=== PATIENT | female | born 1990 | race Caucasian/White ===

== ENCOUNTER 2019-10-11 16:01 | Emergency (ER) | payer OTHER, SELFPAY ==
--- NOTE | ~2019-10-11 | XR_ITS ---
XR chest 2V DATE: 10/11/2019 16:31 INDICATION: Near syncope. Dizziness. Lightheadedness. TECHNIQUE: PA and lateral views COMPARISON: 10/06/2019 PA chest FINDINGS: Normal heart size. No hilar or mediastinal enlargement. No pulmonary infiltrate or consolid ation, pleural effusion or pulmonary vascular congestion or pneumothorax. IMPRESSION: No active cardiopulmonary disease Reviewed, dictated and finalized at location A.
[2019-10-11 16:09] VITALS: BP 135/74; PULSE 95; PULSE 99; RESP 15; TEMP 36.6; O2SAT 100
--- NOTE | 2019-10-11 16:09 | ED.DIZZY ---
HPI - Dizziness General Chief Complaint: Unspecified Stated Complaint: dizzy/lightheaded Time Seen by Provider: 10/11/19 16:07 Source: patient and RN notes reviewed Mode of arrival: other Limitations: no limitations History of Present Illness HPI Narrative: Pt is a 29 y/o female who presents to the ED with c/o lightheadedness and dizziness that began while at orientation here at [employer]. She notes her sx started at 3:45 PM while she was sitting. Pt notes that she began to feel her pulse and a vibration in her epigastric abomen. Pt notes that she saw her abdomen shaking. She notes that she began to feel cold and was near syncope. Pt also reports that she had a chest x-ray last week for her orientation. Pt notes that she went to stand up and walk around, but she began to feel dizzy and felt like she was going to have a syncopal episode. Pt had a black [place] corn burger with zucchini for lunch today. Pt notes that she drank some tea and has had about 70 ounces of water today. Pt denies taking any medication. Pt also reports nausea and shakiness, but denies diaphoresis, chest pain, abdominal pain, syncope, and vision changes. MD elicited complaint: dizziness and lightheadedness Onset (ago): hour(s) (1) Timing: sudden onset Context: at rest History of similar symptoms: No Associated symptoms: nausea and other (vibration in abdomen) Related Data Allergies Allergy/AdvReac Type Severity Reaction Status Date / Time amoxicillin AdvReac Rash Verified 10/11/19 16:21 Review of Systems Review of Systems: Narrative: CONSTITUTIONAL: Reports shakiness. EYES: Denies vision changes. CARDIOVASCULAR: Reports lightheadedness. Denies diaphoresis and chest pain. GASTROINTESTINAL: Reports vibration in her abdomen and nausea. Denies abdominal pain. NEUROLOGIC: Reports dizziness. Denies syncope. All systems reviewed & are unremarkable except as noted in HPI and below PMFSH Past Medical History Medical History IUD (intrauterine device) in place Surgical History Surgical History (Updated 10/11/19 @ 16:53 by Mimi Carvalho) No history of previous surgery Social History Social History (Updated 10/11/19 @ 16:53 by Mimi Carvalho) Smoking status: Never smoker Gender identity (if verbalized by the patient): Female Exam Narrative: Exam Narrative: GENERAL: Well-appearing, well-nourished, and in no acute distress. HEAD: Normocephalic, atraumatic. EYES: PERRLA and EOMI. ENT: Nares clear, no rhinorrhea or epistaxis. Mucous membranes moist. NECK: Supple. CHEST: Clear to auscultation. No respiratory distress. HEART: Regular rate and rhythm. No murmur heard. Normal peripheral pulses. ABDOMEN: Soft, nontender, nondistended, normal active bowel sounds. EXTREMITIES: Normal range of motion. No edema. No calf tenderness. SKIN: Warm, dry, no rash. NEURO: No focal deficits. Alert and oriented X3.EOMs intact without nystagmus. No facial droop/asymmetry noted bilaterally. Grimace intact. Intact sensation in face. Hearing intact bilaterally. Shoulder shrug intact. Strength 5/5 bilateral upper extremities. Strength 5/5 bilateral lower extremities. Reflexes 2+ patellar. Ambulatory with a narrow based steady gait. 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 Patient was not standing, denies feeling anxious this. She does report feeling a bit clammy, but denied any chest pain, headache, vomiting. Patient with normal neurological exam here. No chest pain or shortness of breath. Vaginal exam unknown etiology of patient's symptoms. Patient did not actually syncopized or lose consciousness. She states she just felt briefly unwell. IV access obtained and labs are drawn. Laboratory results show no evidence of electrolyte abnormality, acute kidney injury. Urinalysis is consistent with a UTI. I do not feel that that would cause near syncope, but I believe the urinalysis should be treated. Patient had a seco
--- NOTE | 2019-10-11 16:14 | ECG_ITS ---
Measurements Intervals [place] Rate: 83 P: 66 NM: 167 QRS: 75 QRSD: 102 T: 53 QT: 375 QTc: 443 Interpretive Statements SINUS RHYTHM WITH MARKED SINUS ARRHYTHMIA BORDERLINE R WAVE PROGRESSION, ANTERIOR LEADS BASELINE ARTIFACT- I, II, III, AVR, AVL, AVF, V1, V4-V6 BORDERLINE ECG Electronically Signed On 10-11-2019 17:09:49 CDT by Rajan Francois D.O.
[2019-10-11 16:24] LABS: Glucose Point of Care 69 (65-105)
[2019-10-11] MEDS: SODIUM CHLORIDE 0.9% IV 1,000 ML 999 ML IV CONT (16:38)
[2019-10-11] MEDS: ONDANSETRON INJ 4 MG/2 ML VIAL IV PUSH (16:38)
[2019-10-11 16:44] LABS: Basophils Absolute Auto 0.1 K/mm3 (0.0-0.1); Basophils Percent Auto 0.8 % (0.2-1.2); Eosinophils Absolute Auto 0.3 K/mm3 (0-0.3); Eosinophils Percent Auto 3.7 % (0-4.4); Hematocrit 47.1 % (37.0-47.0); Hemoglobin 15.6 g/dL (12.0-15.0); Immature Granulocyte Absolute 0.02 K/mm3 (0.00-0.031); Immature Granulocyte Percent A 0.3 % (0-0.5); Lymphocytes Absolute Auto 2.91 K/mm3 (0.9-3.2); Lymphocytes Percent Auto 38.9 % (18.3-44.2); Mean Corpuscular HGB Conc 33.1 g/dl (32-36); Mean Corpuscular Hemoglobin 30.1 pg (26-34); Mean Corpuscular Volume 90.8 fl (80-100); Mean Platelet Volume 10.1 fl (7.4-10.4); Monocytes Absolute Auto 0.6 K/mm3 (0.1-0.6); Monocytes Percent Auto 7.9 % (2.6-8.5); Neutrophils Absolute Auto 3.6 K/mm3 (1.3-6.7); Neutrophils Percent Auto 48.4 % (45.5-73.1); Platelet Count Result 241 k/mm3 (150-375); Red Blood Count 5.19 M/mm3 (4.2-5.4); Red Cell Distribution Width 12.6 % (11.5-14.5); White Blood Count 7.5 K/mm3 (4.5-10.0)
[2019-10-11 16:52] LABS: Alanine Aminotransferase 18 U/L (4-35); Alkaline Phosphatase 67 U/L (38-126); Aspartate Amino Transferase 26 U/L (14-36); Bilirubin,Total 1.3 mg/dL (0.2-1.3); Blood Urea Nitrogen 17 mg/dL (7-17); Calcium 9.4 mg/dL (8.4-10.2); Carbon Dioxide 25 mmol/L (22-30); Chloride 102 mmol/L (98-107); Estimated CRCL calculation 128 ml/min; Estimated Glomerular Filt Rate > 60; Glucose 94 mg/dL (65-105); INR 0.9; Potassium 3.9 mmol/L (3.4-5.0); Prothrombin Time 12.2 Seconds (11.1-14.7); Sodium 139 mmol/L (137-145)
[2019-10-11 16:53] LABS: Partial Thromboplastin Time 25.6 SECONDS (22.3-36.8)
[2019-10-11 16:57] LABS: D Dimer < 0.22 ug/mL (<0.48)
[2019-10-11 16:59] LABS: D Dimer 0.27 ug/mL (<0.48)
[2019-10-11 17:04] LABS: Troponin I < 0.012 ng/mL (0.000-0.034)
[2019-10-11 18:47] LABS: Add Urine Microscopic? YES; Appearance Urine Cloudy (Clear); Bacteria Urine 1+ /hpf; Bilirubin Urine Negative (Negative); Blood Urine 2+ (Negative); Budding Yeast Urine Present /hpf; Color Urine Red (Yellow); Glucose Urine UA Negative (Negative); Ketones Urine Negative (Negative); Leukocyte Esterase Ur 3+ LEU/UL (Negative); Mucus Urine Rare /lpf; Nitrate Urine Negative (Negative); Protein Urine 1+ mg/dL (Negative); Specific Grav Ur 1.008 (1.001-1.035); Squamous Epithelial Cell Urine Many /hpf (Few); Urobilinogen Urine Negative mg/dL (<2.0); WBC Clumps Urine Present /HPF; WBC Urine >75 /hpf
[2019-10-11 18:54] VITALS: BP 109/65; PULSE 71; RESP 18; O2SAT 100
[2019-10-11 19:29] LABS: Troponin I < 0.012 ng/mL (0.000-0.034)
[2019-10-11 20:35] VITALS: BP 111/65; PULSE 78; RESP 16; O2SAT 98
== END 2019-10-11 20:36 | disposition home or self-care (01) ==
PROVIDERS: Emergency Provider Emergency Medicine
DX: R55 Syncope and collapse (principal); N30.01 Acute cystitis with hematuria; Z97.5 Presence of (intrauterine) contraceptive device
CPT/HCPCS: 36415; 71046; 80053; 81001; 81025; 82948; 84484; 85025; 85380; 85610; 85730; 87086; 87088; 93005; 96361; 96374; 99284; J2405; J7030

== ENCOUNTER 2020-09-04 11:08 | Outpatient (NON) | payer OTHER, SELFPAY | END 2020-09-04 11:09 | LOC: CHSLAB 11:10 | PROVIDERS: Visit Provider Nurse Practitioner Family | DX: R10.31 Right lower quadrant pain (principal); R10.32 Left lower quadrant pain; R35.0 Frequency of micturition | CPT/HCPCS: 87491; 87591; 87661 ==

== ENCOUNTER 2021-02-13 13:34 | Outpatient (CLI) | payer OTHER, SELFPAY ==
--- NOTE | ~2021-02-13 | US_ITS ---
EXAMINATION:US venous doppler LE RT INDICATION:Right leg pain TECHNIQUE: Multiple grayscale, color flow and Doppler images of the right lower extremity deep venous systems were obtained and reviewed. COMPARISON:No prior studies for comparison. FINDINGS: The common femoral, superficial femoral and popliteal veins demonstrate normal respiratory variation, augmentation and compressibility. Color flow is also seen within the posterior tibial, pe roneal, greater saphenous and profunda veins. IMPRESSION: 1: No lower extremity deep venous thrombosis. Reviewed, dictated and finalized at location A.
== END 2021-02-13 13:35 | disposition home or self-care (01) ==
LOC: CHSIMG 13:37
PROVIDERS: PCP Family Medicine; Visit Provider Family Medicine
DX: M79.661 Pain in right lower leg (principal)
CPT/HCPCS: 93971

== ENCOUNTER 2021-06-14 13:43 | Outpatient (CLI) | payer OTHER, SELFPAY ==
--- NOTE | ~2021-06-14 | US_ITS ---
EXAMINATION: US pelvic complete w TV EXAM DATE: 06/14/2021 14:19 INDICATION: pelvic pain pelvic pain, right sided . TECHNIQUE: Pelvic transabdominal and transvaginal sonogram was performed. There are multiple graysca le and Doppler images available for interpretation. Comparison is made to prior examination from 2013. FINDINGS: Uterus measures 9.0 x 5.0 x 4.1 cm, with IUD centrally located inside the endometrial cavi ty. Endometrial stripe measures 3-4 mm, within normal limits. There is no free pelvic fluid. Right adnexa: The ovary measures 3.2 x 2.0 x 2.2 cm and is morphologically normal. Ovarian vascular f low confirmed. Left adnexa: The ovary measures 3.2 x 2.1 x 2.9 cm and is morphologically normal. Ovarian vascular fl ow confirmed. IMPRESSION: 1. Unremarkable pelvic ultrasound exam. Reviewed, dictated and finalized at location B. NG INSERTER
== END 2021-06-14 13:44 | disposition home or self-care (01) ==
LOC: ANHIMG 13:47
PROVIDERS: PCP Family Medicine; Visit Provider Obstetrics & Gynecology
DX: R10.2 Pelvic and perineal pain (principal)
CPT/HCPCS: 76830; 76856

== ENCOUNTER 2021-09-23 18:01 | Emergency (ER) | payer OTHER, SELFPAY ==
[2021-09-23] VITALS (10 sets, daily range): BP systolic 103–124; BP diastolic 59–70; PULSE 71–82; RESP 11–21; TEMP 37.3; O2SAT 100
--- NOTE | ~2021-09-23 | XR_ITS ---
EXAMINATION: XR chest 1V portable INDICATION: Shortness of breath, midsternal chest pain TECHNIQUE: Portable AP chest at 1827 hours COMPARISON: 10/11/2019 FINDINGS: The lungs are free of acute opacities. There is no pleural effusion or pneumothorax. The ca rdiomediastinal silhouette is normal. The visualized bones and soft tissues are unremarkable. IMPRESSION: 1. No acute cardiopulmonary abnormality. Reviewed, dictated and finalized at location F. PULLER
--- NOTE | 2021-09-23 18:17 | ECG_ITS ---
Measurements Intervals [address] Rate: 83 P: 62 SC: 157 QRS: 78 QRSD: 98 T: 44 QT: 354 QTc: 418 Interpretive Statements SINUS RHYTHM INCOMPLETE RIGHT BUNDLE BRANCH BLOCK BORDERLINE ST ABNORMALITY- ANTEROLAT/INF LEADS BASELINE WANDER- V5-V6 BORDERLINE ECG Electronically Signed On 09-23-2021 20:18:57 SPINNING OPERATOR by Rajan Francois D.O.
[2021-09-23] MEDS: NALOXONE HCL 0.4 MG/ML VIAL IV PUSH (18:21)
[2021-09-23 18:34] LABS: Basophils Absolute Auto 0.1 K/mm3 (0.0-0.1); Basophils Percent Auto 0.8 % (0.2-1.2); Eosinophils Absolute Auto 0.3 K/mm3 (0-0.3); Hematocrit 41.7 % (37.0-47.0); Hemoglobin 14.6 g/dL (12.0-15.0); Immature Granulocyte Absolute 0.01 K/mm3 (0.00-0.031); Immature Granulocyte Percent A 0.2 % (0-0.5); Lymphocytes Absolute Auto 2.73 K/mm3 (0.9-3.2); Lymphocytes Percent Auto 43.3 % (18.3-44.2); Mean Corpuscular Hemoglobin 30.7 pg (26-34); Mean Corpuscular Volume 87.6 fl (80-100); Mean Platelet Volume 9.8 fl (7.4-10.4); Monocytes Absolute Auto 0.5 K/mm3 (0.1-0.6); Monocytes Percent Auto 7.8 % (2.6-8.5); Neutrophils Absolute Auto 2.8 K/mm3 (1.3-6.7); Neutrophils Percent Auto 43.9 % (45.5-73.1); Platelet Count Result 220 k/mm3 (150-375); Red Blood Count 4.76 M/mm3 (4.2-5.4); Red Cell Distribution Width 12.4 % (11.5-14.5); White Blood Count 6.3 K/mm3 (4.5-10.0)
[2021-09-23 18:44] LABS: Alanine Aminotransferase 19 U/L (4-35); Albumin Level 4.8 g/dL (3.5-5.1); Alkaline Phosphatase 65 U/L (38-126); Anion Gap 8 mmol/L (8-16); Aspartate Amino Transferase 34 U/L (14-36); Bilirubin,Total 0.9 mg/dL (0.2-1.3); Blood Urea Nitrogen 16 mg/dL (7-17); Calcium 9.3 mg/dL (8.4-10.2); Carbon Dioxide 26 mmol/L (22-30); Chloride 104 mmol/L (98-107); Estimated CRCL calculation 109 ml/min; Estimated Glomerular Filt Rate > 60; Glucose 105 mg/dL (65-110); Potassium 3.3 mmol/L (3.4-5.0); Sodium 138 mmol/L (137-145)
[2021-09-23] MEDS: POTASSIUM CHLORIDE 20 MEQ PACKET (FOR LIQUID) 40 MEQ PO (19:06)
--- NOTE | 2021-09-23 19:16 | ED.GENADULT ---
HPI - General Adult General Chief complaint: Environmental Exposure Stated complaint: Accidentlay Exposure Time Seen by Provider: 09/23/21 18:07 Source: patient and RN notes reviewed Limitations: no limitations History of Present Illness HPI narrative: 31-year-old female presenting to the emergency department for evaluation after a suspected sentinel exposure while at work. 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 Shortly after transferring materials patient had onset of lightheadedness tachycardia and chest tightness. Related Data Home Medications Medication Instructions Recorded Confirmed No Home Medications 09/23/21 09/23/21 Allergies Allergy/AdvReac Type Severity Reaction Status Date / Time amoxicillin AdvReac Rash, Hives Verified 09/23/21 18:14 Review of Systems Review of Systems: CONSTITUTIONAL: Lightheadedness. EYES: Denies visual changes, redness, or discharge. ENT: Denies rhinorrhea, congestion, sore throat, or otalgia. CARDIOVASCULAR: Tachycardia with chest tightness RESPIRATORY: Shortness of breath. GASTROINTESTINAL: Denies abdominal pain, nausea, vomiting, or diarrhea. GENITOURINARY: Denies dysuria or hematuria. SKIN: Denies rash or itching. MUSCULOSKELETAL: Denies back pain, joint pain, or myalgia. NEUROLOGIC: Denies headache, numbness, or weakness. [facility] Past Medical History Medical History Vaginal delivery x1 Surgical History Surgical History [place] teeth extracted Family History Family History Grandparent Carcinoma of colon grandfather Diabetes mellitus Hypertension Father Diabetes mellitus Social History Social History Smoking status: Former smoker Alcohol intake: current Drinks per week: 1 Substance use: former Gender identity (if verbalized by the patient): Female Exam Narrative: APPEARANCE: Well appearing, no pain, no distress, well-nourished. HEAD: normocephalic, atraumatic. EYES: PERRLA/EOMI, conjunctivae clear. NECK: Supple. No adenopathy, no masses. RESPIRATORY: Airway patent, respirations nonlabored. Clear to auscultation bilaterally, no rales, rhonchi, wheezing. CARDIOVASCULAR: Regular rate and rhythm without murmurs rubs or gallops. NEURO: Alert. Cranial nerves II through XII intact. SKIN: Warm, dry. Normal Color Course Course Emergency Course: Patient symptoms did resolve after treatment with 0.4 mg of Narcan. After the Narcan patient states she had no chest tightness. Patient's labs are within normal limits other than her potassium. Her potassium was replaced. Chest x-ray showed no acute finding. And patient's EKG showed normal sinus rhythm with a right bundle branch block which was similar to her previous EKG. Reevaluation(s) Reevaluation #1: Patient still feels improved. Patient was comfortable with the plan for discharge to home. All questions and concerns were addressed. Patient was well-appearing at time of discharge from the emergency department. Time: 19:23 Vital Signs Vital signs: Vital Signs Temperature 99.2 F 09/23/21 18:06 Pulse Rate 82 09/23/21 18:06 Respiratory Rate 21 H 09/23/21 18:06 Blood Pressure 124/70 09/23/21 18:06 Pulse Oximetry 100 09/23/21 18:06 Temperature 99.2 F 09/23/21 18:06 Pulse Rate 79 09/23/21 19:30 Respiratory Rate 14 09/23/21 19:30 Blood Pressure 103/62 09/23/21 19:16 Pulse Oximetry 100 09/23/21 19:30 Medical Decision Making Vital Signs Vital Signs: Vital Signs Temperature 99.2 F 09/23/21 18:06 Pulse Rate 82 09/23/21 18:06 Respiratory Rate 21 H 09/23/21 18:06 Blood Pressure 124/70 09/23/21 18:06 Pulse Oximetry 100 09/23/21 18:06
== END 2021-09-23 20:09 | disposition home or self-care (01) ==
PROVIDERS: Emergency Provider Emergency Medicine; PCP Family Medicine
DX: Z77.128 Contact with and (suspected) exposure to other hazards in the physical environment (principal); Z87.891 Personal history of nicotine dependence; I45.10 Unspecified right bundle-branch block; R94.31 Abnormal electrocardiogram [ECG] [EKG]
CPT/HCPCS: 36415; 71045; 80053; 85025; 93005; 96374; 99284; A9270; J2310

== ENCOUNTER 2021-12-24 14:19 | Emergency (ER) | payer OTHER, SELFPAY ==
[2021-12-24 14:21] VITALS: BP 128/57; PULSE 85; RESP 16; TEMP 36.5; O2SAT 100
[2021-12-24] MEDS: DOXYCYCLINE HYCLATE 100 MG TABLET PO (14:46)
--- NOTE | 2021-12-24 14:48 | ED.URI ---
HPI - URI/Sore Throat General Chief Complaint: Upper Respiratory Infection <LI Braga Last Filed: 12/24/21 18:36> Stated Complaint: sinus infection <Liza Moreno PA-C - Last Filed: 12/24/21 18:36> Time Seen by Provider: 12/24/21 14:27 <LI Braga Last Filed: 12/24/21 18:36> History of Present Illness HPI Narrative: 31-year-old female here for evaluation of sore throat for the past 10 days associated with nasal drainage, mild facial pain and hoarse voice. Patient states the pain has not improved since onset, and she is also noted some facial pain that radiates into her upper dental area. She has been attempting [id number] medications without relief. Denies sick contacts. She has had 2 negative COVID test at home. Denies fevers, chills. Reports cough in the morning with productive clear sputum, but no shortness of breath or chest pain. <LI Braga Last Filed: 12/24/21 18:36> Related Data Allergies/Adverse Reactions: Allergies Allergy/AdvReac Type Severity Reaction Status Date / Time amoxicillin AdvReac Rash, Hives Verified 09/23/21 18:14 <LI Braga Last Filed: 12/24/21 18:36> Review of Systems Review of Systems: Gen.: Denies fevers or chills Eyes: Denies eye pain or visual change ENT: Reports congestion, sore throat, facial pain and dental pain Respiratory: Reports cough in the morning. Denies shortness of breath CV: Denies chest pain or palpitations GI: Denies abdominal pain nausea, emesis or diarrhea denies burning, urgency, frequency or hematuria Musculoskeletal: Denies back pain or muscle pain Neuro: Denies numbness, tingling, weakness or focal weakness Skin: Denies rash Except as documented, all other systems reviewed and negative <LI Braga Last Filed: 12/24/21 18:36> [facility] Past Medical History Medical History: Medical History Vaginal delivery x1 <Liza Moreno PA-C - Last Filed: 12/24/21 18:36> Surgical History Surgical History: Surgical History [place] teeth extracted <Liza Moreno PA-C - Last Filed: 12/24/21 18:36> Family History Family History: Family History Grandparent Carcinoma of colon grandfather Diabetes mellitus Hypertension Father Diabetes mellitus <Liza Moreno PA-C - Last Filed: 12/24/21 18:36> Social History Social History: Social History Smoking status: Former smoker Alcohol intake: current Drinks per week: 1 Substance use: former Gender identity (if verbalized by the patient): Female <Liaz Moreno PA-C - Last Filed: 12/24/21 18:36> Exam Narrative: APPEARANCE: No acute distress, nontoxic, resting in bed EYES: EOMI HEENT: Mildly tender to palpation over frontal sinuses, no tenderness over maxillary sinuses. Posterior oropharynx clear. No exudates. No tonsillar swelling, uvular deviation, exudates. Normocephalic, atraumatic, OMM. Normal dentition. Neck: No cervical lymphadenopathy RESPIRATORY: No respiratory distress. Clear to auscultation bilaterally with no rhonchi wheezing or rales. CARDIOVASCULAR: Regular rate and rhythm without murmurs rubs or gallops. ABDOMINAL: Soft, nontender, nondistended, no rebound or guarding MUSCULOSKELETAl: Moves all extremities. No clubbing, cyanosis or edema. NEURO: Awake and alert. Following commands, speech normal, no focal deficits SKIN: Warm, dry. No rashes lesions or abrasions PSYCHIATRIC: Normal affect/mood <Liza Moreno PA-C - Last Filed: 12/24/21 18:36> Course MOTOR POOL CLERK/PA Physician Supervision For this patient encounter, I reviewed the MOTOR POOL CLERK or PA documentati
[2021-12-24 14:54] VITALS: O2SAT 99
== END 2021-12-24 14:58 | disposition home or self-care (01) ==
LOC: ANHED 14:40
PROVIDERS: Emergency Provider Emergency Medicine; PCP Family Medicine
DX: J32.9 Chronic sinusitis, unspecified (principal); Z87.891 Personal history of nicotine dependence
CPT/HCPCS: 96372; 99283; A9270; J1100

== ENCOUNTER 2024-04-26 14:57 | Outpatient (RCR) | payer OTHER, SELFPAY ==
--- NOTE | 2024-04-26 16:06 | PTOPEVAL1 ---
Assessment and note entered by Rashad Blue Evaluation Information Assessment Status Evaluation ICD-10 Condition Codes (PT) M54.16 Onset 03/22/24 Subjective Information Pt. reports that she injured the low back on . 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 She states that she was working that day and has to bend often due to her height in the helicopter. She states that on that particular day she had several heavy lifts with patients in stretchers and on a ventilator. She reports she felt pain that evening after work, and pain began to worsen over the next several days. She describes pain from the sacral region and radiating to the right side. She underwent MRI which revealed L4 and L5 disc herniation. She states that her pain is constant and achy, but can get occasional sharp pain. She states that standing or sitting for long periods of time will increase her pain. She reports that she has been off work since 03/22/24. She states that she has improved significant since the onset, but still has pain. She reports that she returns to her doctor on 05/18/24, and does not have a return to work date at this time. Reported Pain Level Pain Score 4: Self Report Assessment PT Clinical Summary Pt. is a 34 year old female who enters the clinic with lumbar radiculopathy. She presents with impaired postural awareness, impaired trunk mobility, proximal l.e. weakness, pain, impaired flexibility and functional decline. Continued skilled PT is indicated in order to improve these areas to allow for improved comfort with IADL performance and to safely return to work. Plan of Care Interventions Electrical Stimulation,Hot Pack/Cold Pack,Manual Therapy,Mechanical Traction,Neuro Re-education, Patient/Caregiver Educati,Therapeutic Activities, Therapeutic Exercise PT Services Indicated Yes Treatment Frequency and 3x/week x 12 visits Duration These treatments will address the objective and functional deficits as defined above. The patient will be advanced safely and appropriately in order for the patient to progress towards his/her prior level of function. Additional exercises will be introduced and as well as a comprehensive home exercise program upon discharge, if needed, ?to ensure carryover of functional gains achieved in the clinic. This treatment plan has been reviewed and agreement upon by the patient.
--- NOTE | 2024-04-26 16:07 | OPREHPOC ---
Outpatient Therapy Plan of Care This is a Multidisciplinary Plan of Care that may contain components documented by all disciplines (PT, OT, and ST.) PT Problem 1 PT Problem #1 Knowledge Deficit PT Goal 1 Goal / Goal Update Pt. will be independent with a HEP addressing trunk mobility and core strength Target Visit 2 PT Problem 2 PT Problem #2 Impaired Flexibility PT Goal 1 Goal / Goal Update Pt. will present at 10 degrees from full knee extension on right and left with the 90/90 test Pt. will present with negative slump test and SLR test on right indicating decreased nerve irritation Target Visit 12 PT Problem 3 PT Problem #3 Impaired Functional Mobil PT Goal 1 Goal / Goal Update Pt. will report being able to walk for 1-2 hours without pain increase Pt. will demonstrate ability to lift 30# or greater from floor to waist in repetition without pain increase. Target Visit 12
--- NOTE | 2024-05-17 17:08 | PTOPPROG ---
Assessment and note entered by Rashad [facility] Evaluation Information Assessment Status Progress ICD-10 Condition Codes (PT) M54.16 Onset 03/22/24 Subjective Information Pt. reports that sharp pain developed last week and has been consistent since last week. She describes tenderness in the area of the right buttock and describes a point of sharpness around the PSIS on the right. She states that pain intensity varies with certain movements. She states that pain is not intense and is manageable. She reports that she still experiences pain with attempting to lift from the floor. She reports that she does return to the doctor tomorrow to discuss further treatment options. Assessment PT Clinical Summary Pt. has attended a total of 10 treatment sessions focused on modality care for pain, manual techniques to improve tissue mobility and decrease pain and therapeutic exercise focused on core stabilization. Subjective reports of pain continue to fluctuate, however note improvements in strength. she still requires cuing with body mechanics in regards to lifting. Recommend continued skilled PT per POC focused on further improving stability. Encouraged pt. to discuss the option of injection to help reduce pain. Plan of Care Interventions Electrical Stimulation,Hot Pack/Cold Pack,Manual Therapy,Mechanical Traction,Neuro Re-education, Patient/Caregiver Educati,Therapeutic Activities, Therapeutic Exercise PT Services Indicated Yes Treatment Frequency and Continue with 2 remaining sessions on current POC Duration focused on core strength and pain reduction. These treatments will address the objective and functional deficits as defined above. The patient will be advanced safely and appropriately in order for the patient to progress towards his/her prior level of function. Additional exercises will be introduced and as well as a comprehensive home exercise program upon discharge, if needed, ?to ensure carryover of functional gains achieved in the clinic. This treatment plan has been reviewed and agreement upon by the patient.
--- NOTE | 2024-05-21 09:27 | OPREHPOC ---
Outpatient Therapy Plan of Care This is a Multidisciplinary Plan of Care that may contain components documented by all disciplines (PT, OT, and ST.) PT Problem 1 PT Problem #1 Knowledge Deficit PT Goal 1 Goal / Goal Update Pt. will be independent with a HEP addressing trunk mobility and core strength Target Visit 2 Progress Met PT Problem 2 PT Problem #2 Impaired Flexibility PT Goal 1 Goal / Goal Update Pt. will present at 10 degrees from full knee extension on right and left with the 90/90 test. not met Pt. will present with negative slump test and SLR test on right indicating decreased nerve irritation. Not met Target Visit 24 Progress Partially Met PT Problem 3 PT Problem #3 Impaired Functional Mobil PT Goal 1 Goal / Goal Update Pt. will report being able to walk for 1-2 hours without pain increase. Not Met Pt. will demonstrate ability to lift 30# or greater from floor to waist in repetition without pain increase. Not Met Pt. will report feeling ready to return to work duties. Target Visit 24 Progress Not Met PT Problem 4 PT Problem #4 Pain PT Goal 1 Goal / Goal Update 1. patient will report reduction of all pain/ symptoms in the R lower back and R hip/LE. Target Visit 24
--- NOTE | 2024-05-21 09:27 | PTOPREEVAL ---
Assessment and note entered by JT File, PT Evaluation Information Assessment Status Re-evaluation ICD-10 Condition Codes (PT) M54.16 Onset 03/22/24 Subjective Information patient reports she continues to have pain and symptoms in the R lower back and R LE. she reports she just saw the MD who wants her to continue skilled PT. she reports since her initial evaluation she is much improved, but reports she continues to have R hip and LE symptoms. she reports activities such as walking are improved, but she continues to have symptoms in the R LE the longer she walks. 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 she returns to skilled PT after having seen the MR earlier this week. she presents still with deficits in R hip strength, hamstrings flexibility, she has radicular symptoms, and inability to return to prior level lifting and functional activities for work performance. continued skilled PT is indicated to improve her objective/functional deficits, achieve remaining goals, and return to prior level work performance activities. Plan of Care Interventions Electrical Stimulation,Hot Pack/Cold Pack,Manual Therapy,Mechanical Traction,Neuro Re-education, Patient/Caregiver Educati,Therapeutic Activities, Therapeutic Exercise PT Services Indicated Yes Treatment Frequency and continue skilled PT 3x weekly for 12 more visits Duration These treatments will address the objective and functional deficits as defined above. The patient will be advanced safely and appropriately in order for the patient to progress towards his/her prior level of function. Additional exercises will be introduced and as well as a comprehensive home exercise program upon discharge, if needed, ?to ensure carryover of functional gains achieved in the clinic. This treatment plan has been reviewed and agreement upon by the patient.
--- NOTE | 2024-06-18 11:37 | OPREHPOC ---
Outpatient Therapy Plan of Care This is a Multidisciplinary Plan of Care that may contain components documented by all disciplines (PT, OT, and ST.) PT Problem 1 PT Problem #1 Knowledge Deficit PT Goal 1 Goal / Goal Update Pt. will be independent with a HEP addressing trunk mobility and core strength Target Visit 2 Progress Met PT Problem 2 PT Problem #2 Impaired Flexibility PT Goal 1 Goal / Goal Update Pt. will present at 10 degrees from full knee extension on right and left with the 90/90 test. not met Pt. will present with negative slump test and SLR test on right indicating decreased nerve irritation. Not met Target Visit 28 Progress Partially Met PT Problem 3 PT Problem #3 Impaired Functional Mobil PT Goal 1 Goal / Goal Update Pt. will report being able to walk for 1-2 hours without pain increase. Not Met Pt. will demonstrate ability to lift 30# or greater from floor to waist in repetition without pain increase. Not Met Pt. will report feeling ready to return to work duties. not met Target Visit 28 Progress Not Met PT Problem 4 PT Problem #4 Pain PT Goal 1 Goal / Goal Update 1. patient will report reduction of all pain/ symptoms in the R lower back and R hip/LE. Target Visit 28
--- NOTE | 2024-06-18 11:38 | PTOPREEVAL ---
Assessment and note entered by JT File, PT Evaluation Information Assessment Status Re-evaluation ICD-10 Condition Codes (PT) M54.16 Onset 03/22/24 Subjective Information patient reports continues symptoms into the R buttock from the lower back. she reports sitting is absolutely the worst activity she can participate in. she reports she has recently had an injection of the lower back, but reports she has not seen much change or improvement since her injection. she reports she returns to the MD on . she reports she does get some relief of symptoms during therapy treatment from the ice and e-stim, IASTM, and stretches. patient reports she can only tolerate about 30 minutes of walking still at one time prior to pain increasing. 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 despite her recent lumbar injection, she continues to have pain/symptoms in the R buttock/PSIS/posterior hip region. her symptoms are still indicative of a discoid herniation/injury as they are increased by sitting and lifting activities. she is still not ready to return to work as she is unable to sit for any length of time comfortably, or safely lift/carry moderate weight items. she continues to have weakness in the hips, pain with palpation, and radicular symptoms in the R buttock. patient does not see the MD again until 07/06/24. given her report of some improvement/symptoms reduction with PT treatments, it is advised that she continue skilled PT at least until her next follow up with her MD where it may be time to talk about the option of a microdiscectomy of the lumbar spine. Plan of Care Interventions Electrical Stimulation,Hot Pack/Cold Pack,Manual Therapy,Mechanical Traction,Neuro Re-education, Patient/Caregiver Educati,Therapeutic Activities, Therapeutic Exercise PT Services Indicated Yes Treatment Frequency and continue skilled PT 2x weekly for 4 more visits ( Duration 28 total) These treatments will address the objective and functional deficits as defined above. The patient will be advanced safely and appropriately in order for the patient to progress towards his/her prior level of function. Additional exercises will be introduced and as well as a comprehensive home exercise program upon discharge, if needed, ?to ensure carryover of functional gains achieved in the clinic. This treatment plan has been reviewed and agreement upon by the patient.
== END 2024-07-25 23:59 | disposition home or self-care (01) ==
LOC: CHSPT 14:57
DX: M51.26 Other intervertebral disc displacement, lumbar region (principal); M54.16 Radiculopathy, lumbar region; Y99.0 Civilian activity done for income or pay
CPT/HCPCS: 97012; 97014; 97110; 97112; 97140; 97150; 97161; 97530; G0283

== ENCOUNTER 2024-11-02 15:13 | Outpatient (RCR) | payer OTHER, MEDICAID, SELFPAY ==
--- NOTE | 2024-11-02 16:39 | PTOPEVAL1 ---
Assessment and note entered by Florecita Lowry DPT Evaluation Information Assessment Status Evaluation Diagnosis low back pain Other ICD-10 Condition Codes ( Z98.890 PT) Onset 09/08/24 Subjective Information Patient reports she underwent microdiscetomy at L4 -L5 on 09/08/24. She reports since surgery she has been good but is usually sore in the mornings and in the afternoons. She reports she is sleeping good. She returned to MD on 10/22/24 and everything looked good. She reports MD gave her a 15# lifting restriction. 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 She also reports she will have to be able step up into the helicopter. She also reports she needs to be able to lift 20# to shoulder height. She follows up with MD on . She reports that pain will sometimes radiate to the lateral part of the R lower leg. Reported Pain Level Pain Score 3: Self Report Assessment PT Clinical Summary Mrs. Yeboah is a 34 year old female who presents to PT with low back pain following a microdiscectomy on 09/08/24. She demonstrates with decreased B LE flexibility, decreased B LE strength and increased pain impairing her ability to lift for work duties as well as complete house hold tasks. She would benefit from skilled PT to address impairments and return to PLOF. Plan of Care Interventions Electrical Stimulation,Gait Training,Hot Pack/Cold Pack,Manual Therapy,Neuro Re-education,Patient/ Caregiver Education,Therapeutic Activities, Therapeutic Exercise PT Services Indicated Yes Treatment Frequency and 3x weekly for 12 visits Duration These treatments will address the objective and functional deficits as defined above. The patient will be advanced safely and appropriately in order for the patient to progress towards his/her prior level of function. Additional exercises will be introduced and as well as a comprehensive home exercise program upon discharge, if needed, ?to ensure carryover of functional gains achieved in the clinic. This treatment plan has been reviewed and agreement upon by the patient.
--- NOTE | 2024-11-22 16:41 | OPREHPOC ---
Outpatient Therapy Plan of Care This is a Multidisciplinary Plan of Care that may contain components documented by all disciplines (PT, OT, and ST.) PT Problem 1 PT Problem #1 Knowledge Deficit PT Goal 1 Goal / Goal Update Patient to demonstrate independence with HEP Target Visit 6 Progress Met PT Problem 2 PT Problem #2 Pain PT Goal 1 Goal / Goal Update 1. Patient to report highest pain at 2/10 Target Visit 12 Progress Not Met PT Problem 3 PT Problem #3 Impaired Strength PT Goal 1 Goal / Goal Update 1. 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 Patient to demonstrate 20% improvement on oswestry 2. Patient to report ability to sit for 1 hour with no increase in pain to return to work 3. Patient to demonstrate ability to lift 50# from floor to waist to return to work -not met 4. Patient to demonstrate ability to lift 30# from waist to shoulder at return to work -not met Target Visit 12 Progress Not Met
--- NOTE | 2024-11-22 16:42 | PTOPPROG ---
Assessment and note entered by Chaparrita Sauer, PT Evaluation Information Assessment Status Progress Diagnosis low back pain Other ICD-10 Condition Codes ( Z98.890 PT) Onset 09/08/24 Subjective Information Enid reports feeling like her pain and mobility have improved since stating PT. She does still have some pain and stiffness in the mornings and mid afternoons. She's still under lifting restriction until her follow up on December 03. When her pain is increased it still tends to radiate down the side of the R leg. Assessment PT Clinical Summary Mrs. Yeboah has attended 10 total skilled PT treatment sessions addressing low back pain following a microdiscectomy on 09/08/24. Since beginning PT she has noted an improvement in her pain overall however experiences the most pain and stiffness in the morning and early afternoons. She is still under lifting restriction which prevents her from returning to work at this time. She will benefit from continued skilled PT to continue making progress toward goals to be able to return to work. Plan of Care Interventions Electrical Stimulation,Gait Training,Hot Pack/Cold Pack,Manual Therapy,Neuro Re-education,Patient/ Caregiver Education,Therapeutic Activities, Therapeutic Exercise PT Services Indicated Yes Treatment Frequency and Continue per original POC Duration These treatments will address the objective and functional deficits as defined above. The patient will be advanced safely and appropriately in order for the patient to progress towards his/her prior level of function. Additional exercises will be introduced and as well as a comprehensive home exercise program upon discharge, if needed, ?to ensure carryover of functional gains achieved in the clinic. This treatment plan has been reviewed and agreement upon by the patient.
--- NOTE | 2024-11-26 13:17 | PTOPPROG ---
Assessment and note entered by Chaparrita Sauer, PT Evaluation Information Assessment Status Progress Diagnosis low back pain Other ICD-10 Condition Codes ( Z98.890 PT) Onset 09/08/24 Subjective Information Enid reports feeling like her leg and core strength are improving but her pain continues to persist. Last night she was up at 2am with high pain and the only way she could get back to sleep was to take ibuprofen and ice her back. Today she notes pain in her R low back and buttock region and in the R lateral calf. Assessment PT Clinical Summary Mrs. Yeboah has attended 12 total skilled PT visits addressing low back pain following a microdiscectomy procedure on 09/08/24. Since beginning therapy she has made improvements in her LE and abdominal strength, however she continues to have pain with radicular symptoms down the R leg. She is also still under a lifting restriction per her surgeon that prevent her from performing full work duties at this time. She will benefit from continued skilled PT to continue progressing toward goals. Plan of Care Interventions Electrical Stimulation,Gait Training,Hot Pack/Cold Pack,Manual Therapy,Neuro Re-education,Patient/ Caregiver Education,Therapeutic Activities, Therapeutic Exercise PT Services Indicated Yes Treatment Frequency and 3x/week for 12 additional visits Duration These treatments will address the objective and functional deficits as defined above. The patient will be advanced safely and appropriately in order for the patient to progress towards his/her prior level of function. Additional exercises will be introduced and as well as a comprehensive home exercise program upon discharge, if needed, ?to ensure carryover of functional gains achieved in the clinic. This treatment plan has been reviewed and agreement upon by the patient.
--- NOTE | 2024-12-10 16:00 | PTOPPROG ---
Assessment and note entered by Harpal Martinez SPT Evaluation Information Assessment Status Progress Diagnosis low back pain Other ICD-10 Condition Codes ( Z98.890 PT) Onset 09/08/24 Subjective Information Pt reports that she is feeling sore today in her low back and does not know why. She also reports she is still having to take Ibuprofen at least twice a day. She states that she used a massage gun before therapy and it provided temporary relief. Assessment PT Clinical Summary Enid has attended 18 skilled PT visits for her low back pain after her microdiscectomy procedure in August. Her abdominal strength has increased and her LE strength has mostly stayed the same since the last progress note. Enid does continue to have pain in the lumbar region and slight LE and core weakness. She no longer has lifting restrictions and is to start work conditioning next visit. She would benefit from continue skilled PT to safely progress with functional strength and mobility to eventually return to work. Plan of Care Interventions Electrical Stimulation,Gait Training,Hot Pack/Cold Pack,Manual Therapy,Neuro Re-education,Patient/ Caregiver Education,Therapeutic Activities, Therapeutic Exercise PT Services Indicated Yes Treatment Frequency and Transition to work conditioning 3x a week for 12 Duration additional visits. These treatments will address the objective and functional deficits as defined above. The patient will be advanced safely and appropriately in order for the patient to progress towards his/her prior level of function. Additional exercises will be introduced and as well as a comprehensive home exercise program upon discharge, if needed, ?to ensure carryover of functional gains achieved in the clinic. This treatment plan has been reviewed and agreement upon by the patient.
--- NOTE | 2024-12-10 16:23 | PCPTNOTE ---
Documentation by Harpal Martinez, PT student reviewed and is correct. Chaparrita Sauer, ANGYT
--- NOTE | 2024-12-22 15:10 | PCPTNOTE ---
On 12/22/24, the student, [Harpal Martinez], provided care and completed [facility] documentation on this patient. I have reviewed the student's documentation and agree with the findings.
--- NOTE | 2024-12-24 16:54 | PCPTNOTE ---
On 12/24/24, the student, [Harpal Martinez], provided care and completed [facility] documentation on this patient. I have reviewed the student's documentation and agree with the findings.
--- NOTE | 2024-12-24 16:54 | OPREHPOC ---
Outpatient Therapy Plan of Care This is a Multidisciplinary Plan of Care that may contain components documented by all disciplines (PT, OT, and ST.) PT Problem 1 PT Problem #1 Knowledge Deficit PT Goal 1 Goal / Goal Update Patient to demonstrate independence with HEP Target Visit 6 Progress Met PT Problem 2 PT Problem #2 Pain PT Goal 1 Goal / Goal Update 1. Patient to report highest pain at 2/10 Target Visit 30 Progress Not Met PT Problem 3 PT Problem #3 Impaired Strength PT Goal 1 Goal / Goal Update 1. 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 Patient to demonstrate 20% improvement on oswestry -not met 2. Patient to report ability to sit for 1 hour with no increase in pain to return to work - not met 3. Patient to demonstrate ability to lift 50# from floor to waist to return to work -met 4. 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
--- NOTE | 2024-12-24 16:54 | PTOPREEVAL ---
Assessment and note entered by JT File, PT Evaluation Information Assessment Status Re-evaluation Diagnosis low back pain Other ICD-10 Condition Codes ( Z98.890 PT) Onset 09/08/24 Subjective Information pt reports that her back feels sore and there is also pain in her calf. Pt reports that she is still taking medicine for the pain 2 times a day as well as icing. pt reports that she has increase in pain if she doesn't keep her back straight when picking things up, when she does repetitive movements, and when trying to hold a plank. Pt reports that sitting for more than 20min also increases her pain. Pt reports she is to see the MD on 01/11/25. Pt reports that she feels like PT has increased her mobility and she can tolerate carrying heavier objects. Reported Pain Level Pain Score 3: Self Report Assessment PT Clinical Summary Enid is on her 6th WC visit and on her 24th visit of skilled PT overall. She has met some of her goals to return to work. Pts strength and endurance has increased since starting WC. However , she still has limitations due to pain and strength and would benefit from skilled PT to return to prior level of function for work duties. Pt does not return to the MD until 01/11/25, and it is advised that she continue WC in the meantime to continue to safely simulate work activities/ build strength to prepare for return to work. Plan of Care Interventions Neuro Re-education,Patient/Caregiver Education, Therapeutic Activities,Therapeutic Exercise PT Services Indicated Yes Treatment Frequency and continue POC 3x a week for 6 visits Duration These treatments will address the objective and functional deficits as defined above. The patient will be advanced safely and appropriately in order for the patient to progress towards his/her prior level of function. Additional exercises will be introduced and as well as a comprehensive home exercise program upon discharge, if needed, ?to ensure carryover of functional gains achieved in the clinic. This treatment plan has been reviewed and agreement upon by the patient.
--- NOTE | 2024-12-28 15:41 | PCPTNOTE ---
On 12/28/24, the student, [Harpal Martinez], provided care and completed [facility] documentation on this patient. I have reviewed the student's documentation and agree with the findings.
--- NOTE | 2024-12-29 15:09 | PCPTNOTE ---
On 12/29/24, the student, [Harpal Martinez], provided care and completed [facility] documentation on this patient. I have reviewed the student's documentation and agree with the findings.
--- NOTE | 2025-01-05 11:03 | PTOPPROG ---
Assessment and note entered by Daya Black PT Evaluation Information Assessment Status Re-evaluation Diagnosis low back pain Other ICD-10 Condition Codes ( Z98.890 PT) Onset 09/08/24 Subjective Information pt reports that her back feels sore and there is also pain in her calf. Pt reports that she is still taking medicine for the pain 2 times a day as well as icing. pt reports that she has increase in pain if she doesn't keep her back straight when picking things up, when she does repetitive movements, and when trying to hold a plank. Pt reports that sitting for more than 20min also increases her pain. Pt reports she is to see the MD on 01/11/25. Pt reports that she feels like PT has increased her mobility and she can tolerate carrying heavier objects. Assessment PT Clinical Summary Enid is on her 6th WC visit and on her th visit of skilled PT overall. She has met some of her goals to return to work. Pts strength and endurance has increased since starting WC. However , she still has limitations due to pain and strength and would benefit from skilled PT to return to prior level of function for work duties. Pt does not return to the MD until 01/11/25, and it is advised that she continue WC in the meantime to continue to safely simulate work activities/ build strength to prepare for return to work. Plan of Care Interventions Neuro Re-education,Patient/Caregiver Education, Therapeutic Activities,Therapeutic Exercise PT Services Indicated Yes Treatment Frequency and continue POC 3x a week for 6 visits Duration These treatments will address the objective and functional deficits as defined above. The patient will be advanced safely and appropriately in order for the patient to progress towards his/her prior level of function. Additional exercises will be introduced and as well as a comprehensive home exercise program upon discharge, if needed, ?to ensure carryover of functional gains achieved in the clinic. This treatment plan has been reviewed and agreement upon by the patient.
--- NOTE | 2025-01-07 16:02 | PCPTNOTE ---
On 12/31/24, the student, [Harpal Martinez], provided care and completed [facility] documentation on this patient. I have reviewed the student's documentation and agree with the findings.
--- NOTE | 2025-01-10 09:52 | OPREHPOC ---
Outpatient Therapy Plan of Care This is a Multidisciplinary Plan of Care that may contain components documented by all disciplines (PT, OT, and ST.) PT Problem 1 PT Problem #1 Knowledge Deficit PT Goal 1 Goal / Goal Update Patient to demonstrate independence with HEP Target Visit 6 Progress Met PT Problem 2 PT Problem #2 Pain PT Goal 1 Goal / Goal Update 1. Patient to report highest pain at 2/10 Target Visit 30 Progress Not Met PT Problem 3 PT Problem #3 Impaired Strength PT Goal 1 Goal / Goal Update 1. 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 Patient to demonstrate 20% improvement on oswestry -progressing 2. Patient to report ability to sit for 1 hour with no increase in pain to return to work -met 3. Patient to demonstrate ability to lift 50# from floor to waist to return to work -met 4. 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
--- NOTE | 2025-01-10 09:52 | PTOPDC ---
Assessment and note entered by Chaparrita Sauer, PT Evaluation Information Assessment Status Discharge Diagnosis low back pain Other ICD-10 Condition Codes ( Z98.890 PT) Onset 09/08/24 Subjective Information Pt reports that she feels like PT has increased her mobility and she can tolerate carrying heavier objects. She states that overall she feels stronger than before she got injured. Pt reports she tends to be more sore and tight when she sits frequently throughout the day and when she sits statically for more than 1 hour, however as long as she keeps moving and doesn't sit for too long at one time during the day her back pain is manageable. Pt has still been taking ibuprofen and /or tylenol however it's not as frequently. She sees the doctor on the and thinks she'll be ready to go back to work. 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 Reported Pain Level Pain Score 2: Self Report Assessment PT Clinical Summary Mrs. Yeboah presents for her 30th skilled PT visit today and her 12th work conditioning session. Since beginning skilled PT and after transitioning to work conditioning she has made great progress in her lower extremity strength and her ability to lift heavy loads for return to work. 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 She still does have some pain but notes that as long as she keeps moving throughout the day and doesn't sit still for too long it's manageable. At this time pt has not met her pain goal, but has met or partially met all other therapeutic goals and will discharge from skilled PT pending release from her doctor tomorrow. Plan of Care PT Services Indicated No
== END 2025-01-10 10:55 | disposition home or self-care (01) ==
LOC: CHSPT 15:13
DX: M54.50 Low back pain, unspecified (principal); Z98.890 Other specified postprocedural states
CPT/HCPCS: 97110; 97112; 97140; 97150; 97161; 97530; 97545